=== PATIENT | female | born 1980 | race Caucasian/White ===

== ENCOUNTER → 2021-10-20 | Outpatient (CLI) | payer BC ==
--- NOTE | 2021-10-20 10:23 | US ---
EXAMINATION TYPE: US gallbladder DATE OF EXAM: 10/20/2021 COMPARISON: NONE CLINICAL HISTORY: 41-year-old female R10.13 EPIGASTRIC PAIN. Nausea. TECHNIQUE: Multiple sonographic images of the right upper quadrant are obtained. FINDINGS: EXAM MEASUREMENTS: Liver Length: 16.0 cm Gallbladder Wall: 0.3 cm CBD: 0.3 cm Right Kidney: 11.4 x 4.1 x 5.8 cm Pancreas: Tail obscured by overlying bowel gas. Visualized portions within normal limits. Liver: 1.2 cm posterior left liver lobe cyst. Otherwise, homogeneous appearance to the liver parenchy ma. Gallbladder: A few shadowing calculi present measuring up to 9 mm. No abnormal distention, wall thic kening, or pericholecystic fluid. Evidence for sonographic Chavez's sign: no CBD: Within normal limits. Right Kidney: no evidence of hydronephrosis IMPRESSION: A benign 1.2 cm cyst posterior left liver lobe. Cholelithiasis without evidence for acute cholecystit is. No biliary ductal dilatation.
== END | disposition home or self-care (01) ==
LOC: RADUSWWP 07:15
PROVIDERS: ATTEND Internal Medicine Gastroenterology
DX: K76.89 Other specified diseases of liver (principal); K80.20 Calculus of gallbladder without cholecystitis without obstruction
CPT/HCPCS: 76705